=== PATIENT | male | born 1965 | race African-American/Black ===

== ENCOUNTER 2017-01-05 14:13 | Outpatient (CLI) | payer OTHER ==
--- NOTE | 2017-01-05 16:35 | RAD ---
LUMBAR SPINE THREE VIEWS: History: 51-year-old male with history of back pain and SSI disability. FINDINGS: Multilevel disc osteophytosis changes are noted. There is a transitional vertebra at the lumbosacral level which appears to represent a sacralized L5. No evidence for acute fracture or dislocation. No s ignificant malalignment. IMPRESSION: Lumbar spondylosis. Transitional vertebrae at the lumbosacral level. POS: ROSAURA
--- NOTE | 2017-01-05 16:36 | RAD ---
LEFT KNEE: History: Left knee replacement, . FINDINGS: AP and lateral views obtained. Patient has a left knee arthroplasty. Femoral and tibial components in good position. No evidence of fractures or loosening seen. IMPRESSION: Left knee arthroplasty without evidence of fractures or loosening. POS: SKINNY
== END 2017-01-05 14:14 | disposition home or self-care (01) ==
LOC: NAV RAD 14:13
PROVIDERS: ATTEND Family Medicine
DX: M54.5 Low back pain (principal); Z96.652 Presence of left artificial knee joint; M47.896 Other spondylosis, lumbar region
CPT/HCPCS: 72100

== ENCOUNTER 2017-03-01 10:04 | Emergency (ER) | payer OTHER ==
[2017-03-01] MEDS ORDERED: Ketorolac Tromethamine 60 MG/2 ML VIAL ONE (10:36)
[2017-03-01] MEDS ORDERED: Dexamethasone 20 MG/5 ML VIAL ONE (10:37)
== END 2017-03-01 10:45 | disposition home or self-care (01) ==
LOC: NAV ERS 10:04
DX: M54.5 Low back pain (principal); I10 Essential (primary) hypertension; F17.220 Nicotine dependence, chewing tobacco, uncomplicated; Z79.899 Other long term (current) drug therapy
CPT/HCPCS: 96372; J1100; J1885

== ENCOUNTER 2017-06-30 09:54 | Emergency (ER) | payer OTHER, SELFPAY ==
[2017-06-30] MEDS ORDERED: Sodium Chloride 0.9% 1,000 ML ONE (10:39)
[2017-06-30 10:48] LABS: #Basophils 0.1 thou/uL (0.0-0.2); #Eosinphils 0.1 thou/uL (0.0-0.7); #Lymphocytes 1.1 thou/uL (1.20-3.40); #Monocytes 0.5 thou/uL (0.11-0.59); #Neutrophils 2.9 thou/uL (1.40-6.50); %Basophils 2.1 % (0.0-1.0); %Eosinophils 1.3 % (0.0-10.0); %Lymphocytes 24.2 % (21.0-51.0); %Monocytes 10.1 % (0.0-10.0); %Neutrophils 62.4 % (42.0-75.0); Hemoglobin 13.4 g/dL (14.0-18.0); Mean Corpuscular HGB CONC 31.9 g/dL (32.0-36.0); Mean Corpuscular Hemoglobin 29.8 pg (27.0-31.0); Mean Corpuscular Volume 93.3 fl (80.0-94.0); Mean Platelet Volume 8.4 fL (7.4-10.4); Platelet Count 146 thou/uL (130-400); RBC Distribution Width 10.9 % (11.5-14.5); Red Blood Cell (RBC) Count 4.49 mill/uL (4.70-6.10); White Blood Cell (WBC) Count 4.7 thou/uL (4.8-10.8)
[2017-06-30 11:00] LABS: CKMB 0.9 ng/mL (0-6.6); Troponin I Less than 0.010 ng/mL (< 0.028)
[2017-06-30 11:02] LABS: ALT (SGPT) 17 U/L (8-55); AST (SGOT) 18 U/L (5-34); Albumin 3.8 g/dL (3.5-5.0); Alkaline Phosphatase 58 U/L (40-150); Anion Gap 11 mmol/L (10-20); BUN (Urea Nitrogen) 15 mg/dL (8.4-25.7); Bilirubin, Total 0.6 mg/dL (0.2-1.2); Calc. Creatinine Clearance 0 mL/min (70-130); Calcium 9.5 mg/dL (7.8-10.44); Carbon Dioxide 27 mmol/L (22-29); Chloride 105 mmol/L (98-107); Estimated GFR-MDRD Greater than 90; Globulin 3.6 g/dL (2.4-3.5); Glucose 96 mg/dL (70-105); Protein, Total 7.4 g/dL (6.0-8.3); Sodium 139 mmol/L (136-145)
--- NOTE | 2017-06-30 12:27 | RAD ---
AP VIEW CHEST: INDICATIONS: Nausea and dizziness. COMPARISON: 04/15/2014 FINDINGS: The lungs are clear. The cardiomediastinal silhouette is within normal limits. No acute osseous abn ormality is noted. IMPRESSION: No acute cardiopulmonary abnormality. POS: ROSAURA
--- NOTE | 2017-06-30 12:28 | CT ---
CT OF THE BRAIN WITHOUT CONTRAST: Indication: Nausea and dizziness since 0800 hours. Comparison: None. FINDINGS: No acute infarct, hemorrhage, or hydrocephalus is present. Septum pellucidum and third ventricle are midline. Mastoid air cells are clear. Paranasal sinuses are clear. Skull is intact. IMPRESSION: No acute intracranial abnormality. POS: ROSAURA
[2017-06-30 13:24] LABS: Troponin I Less than 0.010 ng/mL (< 0.028)
== END 2017-06-30 13:57 | disposition home or self-care (01) ==
LOC: NAV ERS 09:54
DX: R42 Dizziness and giddiness (principal); R94.31 Abnormal electrocardiogram [ECG] [EKG]; I10 Essential (primary) hypertension; F17.220 Nicotine dependence, chewing tobacco, uncomplicated; Z79.899 Other long term (current) drug therapy
CPT/HCPCS: 70450; 71045; 80053; 82553; 84484; 85025; 93005; 94760; 96360; J7050

== ENCOUNTER 2018-08-09 18:26 | Emergency (ER) | payer SELFPAY ==
[2018-08-09 19:08] LABS: #Basophils 0.1 thou/uL (0.0-0.2); #Lymphocytes 1.8 thou/uL (1.20-3.40); #Monocytes 0.6 thou/uL (0.11-0.59); #Neutrophils 2.6 thou/uL (1.40-6.50); %Basophils 2.7 % (0.0-1.0); %Eosinophils 0.7 % (0.0-10.0); %Lymphocytes 34.7 % (21.0-51.0); %Monocytes 11.9 % (0.0-10.0); Hemoglobin 13.3 g/dL (14.0-18.0); Mean Corpuscular HGB CONC 31.5 g/dL (32.0-36.0); Mean Corpuscular Hemoglobin 30.6 pg (27.0-31.0); Mean Platelet Volume 8.1 fL (7.4-10.4); Platelet Count 180 thou/uL (130-400); RBC Distribution Width 11.3 % (11.5-14.5); Red Blood Cell (RBC) Count 4.36 mill/uL (4.70-6.10); White Blood Cell (WBC) Count 5.2 thou/uL (4.8-10.8)
[2018-08-09 19:23] LABS: ALT (SGPT) 64 U/L (8-55); AST (SGOT) 51 U/L (5-34); Alkaline Phosphatase 65 U/L (40-150); Anion Gap 15 mmol/L (10-20); BUN (Urea Nitrogen) 15 mg/dL (8.4-25.7); Calc. Creatinine Clearance 0 mL/min (70-130); Calcium 9.5 mg/dL (7.8-10.44); Carbon Dioxide 23 mmol/L (22-29); Chloride 106 mmol/L (98-107); Estimated GFR-MDRD 82; Globulin 3.9 g/dL (2.4-3.5); Glucose 75 mg/dL (70-105); Lipase 28 U/L (8-78); Potassium 3.5 mmol/L (3.5-5.1); Protein, Total 7.9 g/dL (6.0-8.3); Sodium 140 mmol/L (136-145)
== END 2018-08-09 19:40 | disposition home or self-care (01) ==
LOC: NAV ERS 18:26
DX: R19.7 Diarrhea, unspecified (principal); I10 Essential (primary) hypertension; F17.220 Nicotine dependence, chewing tobacco, uncomplicated; Z79.899 Other long term (current) drug therapy
CPT/HCPCS: 80053; 82274; 83690; 85025; 93005

== ENCOUNTER 2019-08-26 17:17 | Emergency (ER) | payer OTHER, SELFPAY ==
[2019-08-28 11:40] LABS: SARS-CoV-2 MS2 Positive; SARS-CoV-2 N Gene Negative; SARS-CoV-2 S Gene Negative; SARS-CoV-2 orf1ab Negative
== END 2019-08-26 18:30 | disposition home or self-care (01) ==
LOC: NAV ERS 17:17
DX: Z20.828 Contact with and (suspected) exposure to other viral communicable diseases (principal); I10 Essential (primary) hypertension; F17.220 Nicotine dependence, chewing tobacco, uncomplicated; Z79.899 Other long term (current) drug therapy
CPT/HCPCS: 87635; 99283; U0003

== ENCOUNTER 2019-09-09 08:55 | Emergency (ER) | payer OTHER, SELFPAY ==
[2019-09-11 12:28] LABS: SARS-CoV-2 MS2 Positive; SARS-CoV-2 N Gene Negative; SARS-CoV-2 S Gene Negative; SARS-CoV-2 by NAA Not Detected (NotDetected); SARS-CoV-2 orf1ab Negative
== END 2019-09-09 09:57 | disposition home or self-care (01) ==
LOC: NAV ERS 08:55
DX: Z20.828 Contact with and (suspected) exposure to other viral communicable diseases (principal); I10 Essential (primary) hypertension; F17.220 Nicotine dependence, chewing tobacco, uncomplicated; Z79.899 Other long term (current) drug therapy
CPT/HCPCS: 87635; 99283; U0003

== ENCOUNTER 2020-03-22 08:52 | Emergency (ER) | payer MEDICARE, OTHER, SELFPAY ==
[2020-03-22] MEDS ORDERED: Nitroglycerin 0.4 MG TAB (25 Tab Bottle) ONE (09:17)
[2020-03-22 11:10] LABS: #Basophils 0.1 thou/uL (0.0-0.2); #Eosinphils 0.1 thou/uL (0.0-0.7); #Lymphocytes 1.6 thou/uL (1.20-3.40); #Monocytes 0.5 thou/uL (0.11-0.59); #Neutrophils 3.3 thou/uL (1.40-6.50); %Basophils 1.5 % (0.0-1.0); %Eosinophils 1.3 % (0.0-10.0); %Lymphocytes 29.2 % (21.0-51.0); %Monocytes 8.5 % (0.0-10.0); %Neutrophils 59.4 % (42.0-75.0); Hemoglobin 14.8 g/dL (14.0-18.0); Mean Corpuscular HGB CONC 33.4 g/dL (32.0-36.0); Mean Corpuscular Volume 98.8 fL (78.0-98.0); Mean Platelet Volume 8.8 fL (7.4-10.4); Platelet Count 176 thou/uL (130-400); White Blood Cell (WBC) Count 5.5 thou/uL (4.8-10.8)
[2020-03-22 11:22] LABS: ALT (SGPT) 88 U/L (8-55); AST (SGOT) 65 U/L (5-34); Albumin 3.8 g/dL (3.5-5.0); Alkaline Phosphatase 59 U/L (40-110); Anion Gap 14 mmol/L (10-20); BUN (Urea Nitrogen) 17 mg/dL (8.4-25.7); Bilirubin, Total 0.6 mg/dL (0.2-1.2); CK (CPK) 106 U/L (30-200); Calc. Creatinine Clearance 0 mL/min (70-130); Calcium 9.1 mg/dL (7.8-10.44); Carbon Dioxide 25 mmol/L (22-29); Chloride 106 mmol/L (98-107); Globulin 4.2 g/dL (2.4-3.5); Glucose 107 mg/dL (70-105); Potassium 3.8 mmol/L (3.5-5.1); Sodium 141 mmol/L (136-145)
--- NOTE | 2020-03-22 13:01 | RAD ---
PORTABLE CHEST: Date: 03/22/2020 HISTORY: Chest pain. FINDINGS: Lung myers appear clear of infiltrate. Heart size upper normal. Vasculature normal. No change from prior exam of 2018. IMPRESSION: No acute lung process. POS: AGW
== END 2020-03-22 13:05 | disposition home or self-care (01) ==
LOC: NAV ERS 08:52
DX: R07.9 Chest pain, unspecified (principal); I10 Essential (primary) hypertension; F17.220 Nicotine dependence, chewing tobacco, uncomplicated; Z79.899 Other long term (current) drug therapy
CPT/HCPCS: 71045; 80053; 82550; 84484; 85025; 93005

== ENCOUNTER 2020-06-03 10:14 | Emergency (ER) | payer MEDICARE ==
[2020-06-03] MEDS ORDERED: Ketorolac Tromethamine 60 MG/2 ML VIAL ONE (11:53)
== END 2020-06-03 12:12 | disposition home or self-care (01) ==
LOC: NAV ERS 10:14
DX: M25.552 Pain in left hip (principal); I10 Essential (primary) hypertension; F17.220 Nicotine dependence, chewing tobacco, uncomplicated; Z79.899 Other long term (current) drug therapy
CPT/HCPCS: 96372; J1885

== ENCOUNTER 2021-08-19 11:25 | Emergency (ER) | payer MEDICARE ==
[2021-08-19] MEDS ORDERED: Sulfameth/Trimethoprim DS 800-160mg TAB ONE (12:31)
== END 2021-08-19 12:34 | disposition home or self-care (01) ==
LOC: NAV ERS 11:25
DX: L03.114 Cellulitis of left upper limb (principal); I10 Essential (primary) hypertension; F17.220 Nicotine dependence, chewing tobacco, uncomplicated; Z79.899 Other long term (current) drug therapy
CPT/HCPCS: 99283

== ENCOUNTER 2021-11-23 08:02 | Emergency (ER) | payer MEDICARE, OTHER ==
[2021-11-23] MEDS ORDERED: Ketorolac Tromethamine 60 MG/2 ML VIAL ONE (09:54)
== END 2021-11-23 10:06 | disposition home or self-care (01) ==
LOC: NAV ERS 08:02
DX: M25.511 Pain in right shoulder (principal); M25.552 Pain in left hip; G89.29 Other chronic pain; I10 Essential (primary) hypertension; F17.220 Nicotine dependence, chewing tobacco, uncomplicated; E78.00 Pure hypercholesterolemia, unspecified
CPT/HCPCS: 96372; J1885

== ENCOUNTER 2022-02-08 01:20 | Emergency (ER) | payer OTHER | END 2022-02-08 01:55 | disposition home or self-care (01) | LOC: NAV ERS 01:20 | DX: S61.216A Laceration without foreign body of right little finger without damage to nail, initial encounter (principal); I10 Essential (primary) hypertension; F17.220 Nicotine dependence, chewing tobacco, uncomplicated; W26.8XXA Contact with other sharp object(s), not elsewhere classified, initial encounter | CPT/HCPCS: 12001 ==

== ENCOUNTER 2022-04-06 03:35 | Emergency (ER) | payer OTHER ==
[2022-04-06] MEDS ORDERED: Ondansetron PF 4 MG/2 ML Vial ONE (03:58)
[2022-04-06 04:05] LABS: %Lymphocytes 42.3 % (21.0-51.0); %Monocytes 10.8 % (0.0-10.0); %Neutrophils 43.9 % (42.0-75.0); Hemoglobin 14.7 g/dL (14.0-18.0); Manual Diff?? NO; Mean Corpuscular HGB CONC 33.1 g/dL (32.0-36.0); Mean Corpuscular Hemoglobin 32.6 pg (27.0-31.0); Mean Corpuscular Volume 98.5 fl (78.0-98.0); Mean Platelet Volume 8.3 fL (7.4-10.4); Platelet Count 200 10x3/uL (130-400); RBC Distribution Width 11.2 % (11.5-14.5); White Blood Cell (WBC) Count 6.3 10x3/uL (4.8-10.8)
[2022-04-06 04:06] LABS: #Basophils 0.1 thou/uL (0.0-0.2); #Eosinphils 0.1 thou/uL (0.0-0.7); #Lymphocytes 2.7 thou/uL (1.20-3.40); #Monocytes 0.7 thou/uL (0.11-0.59); #Neutrophils 2.8 thou/uL (1.40-6.50)
[2022-04-06 04:07] LABS: BUN (Urea Nitrogen) 20 mg/dL (8.4-25.7); Calc. Creatinine Clearance 0 mL/min (70-130); Carbon Dioxide 23 mmol/L (22-29); Chloride 99 mmol/L (98-107); Estimated GFR 59; Glucose 105 mg/dL (70-105); Potassium 3.1 mmol/L (3.5-5.1); Sodium 136 mmol/L (136-145)
[2022-04-06 04:08] LABS: AST (SGOT) 56 U/L (5-34); Albumin 3.9 g/dL (3.5-5.0); Alkaline Phosphatase 78 U/L (40-110); Bilirubin, Total 0.5 mg/dL (0.2-1.2); Calcium 9.1 mg/dL (7.6-10.4); Globulin 4.1 g/dL (2.4-3.5)
[2022-04-06 04:09] LABS: ALT (SGPT) 78 U/L (8-55)
[2022-04-06 04:10] LABS: Anion Gap 14 mmol/L (10-20)
[2022-04-06 04:11] LABS: PTT 33.1 sec (22.9-36.1); Prothrombin Time 14.1 sec (12.0-14.7)
[2022-04-06] MEDS ORDERED: Fentanyl 100 MCG/2 ML VIAL ONE (04:12)
[2022-04-06] MEDS ORDERED: Nitroglycerin 0.4 MG TAB (25 Tab Bottle) ONE (05:36)
[2022-04-06] MEDS ORDERED: Heparin 25,000 units/D5W 500 ML ONE (05:36)
[2022-04-06] MEDS ORDERED: Tenecteplase 50 MG ONE (05:36)
[2022-04-06] MEDS ORDERED: Heparin 10,000 UNITS/1 ML VIAL ONE (05:36)
[2022-04-06] MEDS ORDERED: Sodium Chloride 0.9% 2,000 ML ONE (05:38)
== END 2022-04-06 04:32 | disposition short-term general hospital (02) ==
LOC: NAV ERS 03:35
DX: I21.3 ST elevation (STEMI) myocardial infarction of unspecified site (principal); I10 Essential (primary) hypertension; E78.00 Pure hypercholesterolemia, unspecified; F17.220 Nicotine dependence, chewing tobacco, uncomplicated; Z79.899 Other long term (current) drug therapy
CPT/HCPCS: 36415; 80053; 83690; 83880; 84484; 85025; 85379; 85610; 85730; 96374; 96375; J1643; J1644; J2405; J3010; J3101; J7050

== ENCOUNTER 2022-09-19 02:52 | Emergency (ER) | payer MEDICARE, OTHER ==
[2022-09-19] MEDS ORDERED: Acetaminophen 500 MG TAB ONE (03:10)
[2022-09-19] MEDS ORDERED: Ibuprofen 200 MG TAB ONE (03:28)
== END 2022-09-19 04:20 | disposition home or self-care (01) ==
LOC: NAV ERS 02:52
DX: R50.9 Fever, unspecified (principal); R51.9 Headache, unspecified; I10 Essential (primary) hypertension; E78.00 Pure hypercholesterolemia, unspecified; F17.210 Nicotine dependence, cigarettes, uncomplicated; Z79.899 Other long term (current) drug therapy; Z20.822 Contact with and (suspected) exposure to COVID-19
CPT/HCPCS: 87635; 99283

== ENCOUNTER 2024-03-29 08:40 | Emergency (ER) | payer MEDICARE | END 2024-03-29 09:20 | disposition home or self-care (01) | LOC: NAV ERS 08:40 | DX: S39.012A Strain of muscle, fascia and tendon of lower back, initial encounter (principal); I10 Essential (primary) hypertension; E78.00 Pure hypercholesterolemia, unspecified; F17.290 Nicotine dependence, other tobacco product, uncomplicated; Z79.899 Other long term (current) drug therapy; X58.XXXA Exposure to other specified factors, initial encounter | CPT/HCPCS: 99283 ==

== ENCOUNTER 2024-12-14 08:12 | Emergency (ER) | payer MEDICARE, SELFPAY | END 2024-12-14 09:18 | disposition home or self-care (01) | LOC: NAV ERS 08:12 | DX: M25.551 Pain in right hip (principal); I10 Essential (primary) hypertension; E78.00 Pure hypercholesterolemia, unspecified; F17.200 Nicotine dependence, unspecified, uncomplicated; Z79.899 Other long term (current) drug therapy; X50.0XXA Overexertion from strenuous movement or load, initial encounter | CPT/HCPCS: 96372; 99283; J1885 ==